=== PATIENT | female | born 1945 | race Caucasian/White ===

== ENCOUNTER 2016-10-29 10:33 | Emergency (ER) | payer OTHER, BC ==
[2016-10-29 11:00] VITALS: BP 155/86; PULSE 66; TEMP 97.6; BMI 32.9
--- NOTE | 2016-10-29 11:33 | PDOC ---
History of Present Illness - General Chief Complaint: Revisit,Wound Recheck Stated Complaint: FACIAL BRUISING AFTER MOHS SURGERY Time Seen by Provider: 10/29/16 10:45 - History of Present Illness Initial Comments: 10/29/16 11:27 Chief complaint: Discoloration around right eye History of present illness: Patient had a surgical procedure on the forehead for removal of skin cancer by Dr. Carlisle on Tuesday. Since then she has had progressive discoloration of her right upper and lower eyelids. Review of systems: No change of vision, no discoloration or pain within the eye. No history of significant bleeding in the past, including central nervous system, GI, or skin. No hematuria. Remainder systems reviewed and found to be negative Past medical history: Multiple unrelated medical problems reviewed from the old record, noncontributory No aspirin or anticoagulants Social/family history reviewed and noncontributory. Denies recent alcohol intake Physical exam: Alert and oriented 3, well-developed well-nourished, no acute distress, cooperative Afebrile, vital signs normal Head atraumatic except for excision of lesion on the mid forehead, which is bandaged and left undisturbed until further evaluation by Dr. Carlisle. Discoloration suggestive of ecchymoses of the right upper and lower eyelids. Mild edema. Likely the result of the surgery PERRLA, fundi benign, conjunctivae and cornea is clear, anterior chamber clear, EOMs full without diplopia, no obvious visual defect. ENT clear Neck without tenderness or deformity, no bruits masses or nodes Chest clear CV regular without murmur rub or gallop Abdomen benign Skin clear except for findings noted above. No other rashes or discolorations Neurological: C2 to 12 intact. Strength full and symmetric. No focal sensory or motor deficits. Gait stable and unimpaired Impression: Ecchymoses of the upper and lower eyelids as a result of skin surgery on the forehead 2 days ago. Patient reassured that this was a normal surgical complication. Plan: Dr. Carlisle has been notified. He will see patient in the emergency room , reevaluate the wound, and provide further reassurance to the patient. Past History - Past Medical History Allergies/Adverse Reactions: Allergies Allergy/AdvReac Type Severity Reaction Status Date / Time erythromycin base Allergy Intermediate Verified 10/29/16 10:49 ofloxacin [From Floxin] Allergy Unknown Verified 10/29/16 10:49 Penicillins Allergy Unknown Verified 10/29/16 10:49 Home Medications: Ambulatory Orders Atenolol [Tenormin] 75 mg PO DAILY 10/29/16 Dexlansoprazole [Dexilant] 60 mg PO DAILY PRN 10/29/16 Fexofenadine HCl [Rhoda Allergy] 60 mg PO DAILY 10/29/16 Fluticasone Prop 0.05% Nasal [Flonase -] 1 - 2 spray NS DAILY PRN 10/29/16 Loratadine [Claritin] 10 mg PO DAILY 10/29/16 Omeprazole 20 mg PO DAILY 10/29/16 Valsartan [Diovan] 160 mg PO DAILY 10/29/16 GI Disorders: Yes (GERD, DIVERTICULOSIS) HTN: Yes Other medical history: [place] GLAUCOMA - Psycho/Social/Smoking Cessation Hx Anxiety: No Suicidal Ideation: No Smoking History: Never smoked Hx Alcohol Use: No Drug/Substance Use Hx: No Substance Use Type: None *Physical Exam - Vital Signs Last Vital Signs Temp Pulse Resp BP Pulse Ox 97.6 F 66 16 155/86 98 10/29/16 10:36 10/29/16 10:36 10/29/16 10:36 10/29/16 10:36 10/29/16 10:36 Medical Decision Making - Medical Decision Making 10/29/16 12:07 Seen in the ER by Dr. Carlisle. Reassured. No further surgical intervention required. Patient to follow-up with Dr. Carlisle as directed. *DC/Admit/Observation/Transfer Diagnosis at time of Disposition: Traumatic periorbital ecchymosis Qualifiers: Encounter type: initial encounter Laterality: right Qualified Code(s): S05.11XA - Contusion of eyeball and orbital tissues, right eye, initial encounter - Discharge Dispostion Disposition: HOME Condition at time of disposition: Stable Admit: No - Referrals Referrals: Yonas Carlisle MD [Primary Care Provider] - 1 week - Patient Instructions Printed Discharge Instructions: How to Care for a Surgical Wound
== END 2016-10-29 12:19 | disposition home or self-care (01) ==
LOC: FER 10:33
DX: S05.11XA Contusion of eyeball and orbital tissues, right eye, initial encounter (principal); K21.9 Gastro-esophageal reflux disease without esophagitis; I10 Essential (primary) hypertension; H40.20X0 Unspecified primary angle-closure glaucoma, stage unspecified
CPT/HCPCS: 99281-25